=== PATIENT | female | born 1975 | race Caucasian/White ===

== ENCOUNTER → 2016-11-18 | Outpatient (CLI) | payer OTHER ==
--- NOTE | 2016-11-18 12:56 | PN ---
DATE OF SERVICE: 11/18/2016 [id number] lady who has been [facility] to discuss results of diagnostic sleep study for possible obstructive sleep apnea-hypopnea syndrome. I discussed results of diagnostic sleep study with patient in details. Mild to moderate snoring has been documented but no significant respiratory abnormalities following 4% oxygen desaturation criteria for hypopneas. Apnea-hypopnea index 1.0. Lowest oxygen level 87.4. Oxygen was below normal only for 0.1 minute. Patient continued to have symptoms of excessive daytime sleepiness. Today her [place] Sleepiness Scale is 19. MEDICATIONS: Cymbalta, vitamin D. During physical exam, patient in no distress. BP 164/108, HR 108, RR 16. Weight 298. BMI 51.1, temp 97.8. Oxygen saturation at room air 96%. OROPHARYNX: Short distance between soft palate and pharyngeal wall. ABDOMEN: Obese. NECK: Supple. No JVD, Thyroid is not palpable. LUNGS: Clear to percussion and to auscultation. Good air exchange. No wheezing or rhonchi. HEART: S1, S2 regular. No murmurs, gallops, or rubs. RUG CUTTER HELPER: Awake, alert, and oriented x3. Cranial nerves 2 to 7 intact. There is no fasciculation or atrophy noted. No focal deficits observed. IMPRESSION: 1. No significant respiratory abnormalities by results of polysomnogram following 4% oxygen desaturation criteria for hypopneas. 2. No REM sleep documented during the sleep study. Some of the patient has more abnormalities of respiration in REM sleep. 3. Patient continued to have symptoms of excessive daytime sleepiness, sometimes has sleepiness while driving the car. 4. Mild to moderate snoring has been documented during the sleep study. 5. Very minimal periodic limb movements have been documented during the sleep study without significant amount of microarousals. 6. 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 7. Obesity. 8. Depression. 9. Hypertension in the office, documented again. 10. History of sinusitis. 11. Status post tonsillectomy. PLAN: 1. Polysomnogram with multiple sleep latency test for objective evaluation of patient's symptoms of excessive daytime sleepiness. 2. Sleep hygiene with regular time in bed for at least 8 hours. 3. No driving if feeling any sleepiness. 4. Losing weight. Thank you very much for allowing me to participate in the management of your patient. Sincerely, Chance Aquino MD, PhD, FAASM Diplomat of [place] [employer], Sleep Medicine Board by [place] [employer] [place] [employer] Crawler Tractor Operator [facility] [place]
== END | disposition home or self-care (01) ==
LOC: SLEEP 11:04
PROVIDERS: ATTEND Internal Medicine
DX: G47.10 Hypersomnia, unspecified (principal); G47.63 Sleep related bruxism; E66.9 Obesity, unspecified; Z68.43 Body mass index [BMI] 50.0-59.9, adult; F32.9 Major depressive disorder, single episode, unspecified; I10 Essential (primary) hypertension; Z87.898 Personal history of other specified conditions; Z98.890 Other specified postprocedural states; Z79.899 Other long term (current) drug therapy

== ENCOUNTER 2017-08-27 18:05 | Emergency (ER) | payer OTHER ==
--- NOTE | 2017-08-27 19:03 | ED ---
Extremity Problem HPI - General Chief complaint: Extremity Problem,Nontraumatic Stated complaint: swelling and redness both ankles Time Seen by Provider: 08/27/17 18:21 Source: patient, RN notes reviewed, old records reviewed Mode of arrival: ambulatory Limitations: no limitations - History of Present Illness Initial comments: is a 42-year-old female presents emergency department today with 2 weeks of swelling in her low bilateral lower extremities. Patient reports she has no history of high blood pressure. She denies any diet high in salt intake. She reports that she has been having some pain with this swelling in her legs. She reports it feels like a stretching. She states that she's noticed some redness that is been a little bit worse on her right ankle compared to her left. She denies any history of blood clots. She denies any posterior calf or knee pain. She states that she has no shortness of breath, chest pain or heart palpitations. She went to urgent care earlier today and was sent here for further testing such as kidney function testing to see if she can be placed on diuretics. She is also concerned of possible blood clot. - Related Data Previous Rx's Medication Instructions Recorded Hydrochlorothiazide 12.5 mg PO DAILY #14 capsule 08/27/17 Allergies Allergy/AdvReac Type Severity Reaction Status Date / Time Sulfa (Sulfonamide Allergy Swelling Verified 08/27/17 18:35 Antibiotics) Review of Systems ROS Statement: Those systems with pertinent positive or pertinent negative responses have been documented in the HPI. ROS Other: All systems not noted in ROS Statement are negative. Past Medical History Past Medical History: No Reported History History of Any Multi-Drug Resistant Organisms: None Reported Past Surgical History: No Surgical Hx Reported Past Psychological History: No Psychological Hx Reported Smoking Status: Never smoker Past Alcohol Use History: None Reported Past Drug Use History: None Reported General Exam - General Exam Comments Initial Comments: This is a 42-year-old female. No distress. Limitations: no limitations General appearance: alert, in no apparent distress Head exam: Present: atraumatic, normocephalic, normal inspection Eye exam: Present: normal appearance, PERRL, EOMI. Absent: scleral icterus, conjunctival injection, periorbital swelling ENT exam: Present: normal exam, mucous membranes moist Neck exam: Present: normal inspection. Absent: tenderness, meningismus, lymphadenopathy Respiratory exam: Present: normal lung sounds bilaterally. Absent: respiratory distress, wheezes, rales, rhonchi, stridor Cardiovascular Exam: Present: regular rate, normal rhythm, normal heart sounds. Absent: systolic murmur, diastolic murmur, rubs, gallop, clicks GI/Abdominal exam: Present: soft, normal bowel sounds. Absent: distended, tenderness, guarding, rebound, rigid Extremities exam: Present: normal inspection, full ROM, normal capillary refill , pedal edema ( is bilateral 2+ pedal edema.). Absent: tenderness, joint swelling, calf tenderness Back exam: Present: normal inspection, full ROM Neurological exam: Present: alert, oriented X3, CN II-XII intact, normal gait Psychiatric exam: Present: normal affect, normal mood Skin exam: Present: warm, dry, intact, normal color. Absent: rash Course Vital Signs 08/27/17 18:17 Temperature 97.9 F Pulse Rate 93 Respiratory 18 Rate Blood Pressure 143/84 O2 Sat by Pulse 100 Oximetry Medical Decision Making - Medical Decision Making Is a 42-year-old female presenting today with bilateral feet and ankle swelling for approximately 2 weeks. She was sent here from [facility] for further testing. She has a chest pain or shortness of breath. She states that she's been on her feet somewhat more than regular when she was asked again. Patient ultrasound is negative for DVT. Patient's kidney function is normal. Patient appears asthma dependent edema. Discussed With the patient on a low-dose water pill, and elevating she her legs. Patient understands treatment plan will comply. Came return parameters were discussed. - Lab Data Result diagrams: 08/27/17 18:58 08/27/17 18:58 Lab Results 08/27/17 08/27/17 Range/Units 18:58 18:58 WBC 6.6 (3.8-10.6) k/uL RBC 5.02 (3.80-5.40) m/uL Hgb 14.8 (11.4-16.0) gm/dL Hct 44.2 (34.0-46.0) % MCV 88.0 (80.0-100.0) fL MCH 29.5 (25.0-35.0) pg MCHC 33.5 (31.0-37.0) g/dL RDW 14.7 (11.5-15.5) % Plt Count 408 (150-450) k/uL Neutrophils % 63 % Lymphocytes % 25 % Monocytes % 7 % Eosinophils % 3 % Basophils % 1 % Neutrophils # 4.1 (1.3-7.7) k/uL Lymphocytes # 1.6 (1.0-4.8) k/uL Monocytes # 0.5 (0-1.0) k/uL Eosinophils # 0.2 (0-0.7) k/uL Basophils # 0.1 (0-0.2) k/uL Sodium 137 (137-145) mmol/L Potassium 4.3 (3.5-5.1) mmol/L Chloride 102 (98-107) mmol/L Carbon Dioxide 28 (22-30) mmol/L Anion Gap 7 mmol/L BUN 9 (7-17) mg/dL Creatinine 0.85 (0.52-1.04) mg/dL Est GFR (MDRD) Af Amer >60 (>60 ml/min/1.73 sqM) Est GFR (MDRD) Non-Af >60 (>60 ml/min/1.73 sqM) Glucose 99 (74-99) mg/dL Calcium 10.0 (8.4-10.2) mg/dL - Radiology Data Radiology results: report reviewed Sound is negative for DVT. Disposition Clinical Impression: Dependent edema Disposition: HOME SELF-CARE Condition: Good Instructions: Leg Edema (ED) Additional Instructions: Patient advised to elevate your legs. Patient should increase water, decrease her salt intake. Patient should follow-up with primary care provider within the next 1-2 weeks. Return to the emergency department if any alarming signs or symptoms occur. Prescriptions: Hydrochlorothiazide 12.5 mg PO DAILY #14 capsule Referrals: Dakotah Lam MD [Primary Care Provider] - 1-2 days Time of Disposition: 20:23
[2017-08-27 19:22] LABS: Basophils # (A) 0.1 k/uL (0-0.2); Basophils % (A) 1 %; CH 30.2; CHCM 34.5; Eosinophils # (A) 0.2 k/uL (0-0.7); Eosinophils % (A) 3 %; HCT 44.2 % (34.0-46.0); HGB 14.8 gm/dL (11.4-16.0); Luc # (Auto) 0.15; Luc % (Auto) 2; Lymphocytes # (A) 1.6 k/uL (1.0-4.8); Lymphocytes % (A) 25 %; MCH 29.5 pg (25.0-35.0); MCHC 33.5 g/dL (31.0-37.0); Mean Platelet Volume 6.7; Monocytes # (A) 0.5 k/uL (0-1.0); Monocytes % (A) 7 %; Neutrophils # (A) 4.1 k/uL (1.3-7.7); Neutrophils % (A) 63 %; RBC 5.02 m/uL (3.80-5.40); RDW 14.7 % (11.5-15.5); WBC 6.6 k/uL (3.8-10.6); WBC (Perox) 6.42
[2017-08-27 19:29] LABS: Anion Gap 7 mmol/L; Blood Urea Nitrogen 9 mg/dL (7-17); Carbon Dioxide 28 mmol/L (22-30); Chloride 102 mmol/L (98-107); Glucose 99 mg/dL (74-99); Non-African American GFR(MDRD) >60 (>60 ml/min/1.73 sqM); Potassium 4.3 mmol/L (3.5-5.1); Sodium 137 mmol/L (137-145)
--- NOTE | 2017-08-27 20:06 | US ---
EXAMINATION TYPE: US venous doppler duplex LE DATE OF EXAM: 08/27/2017 7:34 PM COMPARISON: NONE CLINICAL HISTORY: Pain. bilateral leg swelling SIDE PERFORMED: bilateral TECHNIQUE: The lower extremity deep venous system is examined utilizing real time linear array sonog lennie with graded compression, doppler sonography and color-flow sonography. VESSELS IMAGED: External Iliac Vein (EIV) Common Femoral Vein Deep Femoral Vein Greater Saphenous Vein * Femoral Vein Popliteal Vein Small Saphenous Vein * Proximal Calf Veins (* superficial vessels) Some exam limitations due to large habitus. Right Leg: neg for RLE dvt Left Leg: neg for LLE dvt IMPRESSION: Grayscale, color doppler, spectral doppler imaging performed of the deep veins of the lo wer extremities. There is normal flow, compressibility, vascular waveforms.
[2017-08-27 20:43] VITALS: BP 145/75; PULSE 97; RESP 17; TEMP 97.7
== END 2017-08-27 20:43 | disposition home or self-care (01) ==
LOC: EC 18:05
DX: R60.9 Edema, unspecified (principal); Z88.2 Allergy status to sulfonamides
CPT/HCPCS: 36415; 80048; 85025; 93970; 99284

== ENCOUNTER → 2020-06-03 | Outpatient (CLI) | payer OTHER ==
--- NOTE | 2020-06-03 14:22 | MM ---
Reason for exam: screening (asymptomatic). Baseline mammogram. History: Took hormonal contraceptives for 3 years. Physical Findings: Nurse did not find any significant physical abnormalities on exam. MG 3D Screening Mammo W/Cad Bilateral CC, MLO, and XCCL view(s) were taken. There are scattered fibroglandular densities. Finding: There is a 5 mm equal density (isodense) mass in the left breast. There are lymph nodes bilaterally. These results were verbally communicated with the patient and result sheet given to the patient on 06/03/20. ASSESSMENT: Incomplete: need additional imaging evaluation, BI-RAD 0 RECOMMENDATION: Special view mammogram of the left breast.
--- NOTE | 2020-06-03 14:23 | MM ---
Reason for exam: additional evaluation requested from abnormal screening. History: Took hormonal contraceptives for 3 years. Physical Findings: Breast exam preformed at baseline screening. MG 3D Work Up W/Cad LT Spot compression CC, spot compression MLO, and ML view(s) were taken of the left breast. There are scattered fibroglandular densities. These results were verbally communicated with the patient and result sheet given to the patient on 06/03/20. ASSESSMENT: Probably benign, BI-RAD 3 RECOMMENDATION: Follow-up diagnostic mammogram of the left breast in 6 months.
== END | disposition home or self-care (01) ==
LOC: RADMAMWWP 12:56
PROVIDERS: ATTEND Internal Medicine
DX: Z12.31 Encounter for screening mammogram for malignant neoplasm of breast (principal); R92.8 Other abnormal and inconclusive findings on diagnostic imaging of breast
CPT/HCPCS: 77061; 77063; 77065; 77067

== ENCOUNTER 2023-05-10 06:29 | Emergency (ER) | payer OTHER ==
[2023-05-10 06:35] VITALS: RESP 18; TEMP 97.9
[2023-05-10] MEDS ORDERED: BACITRACIN OINT 1 EACH PACKET TOPICAL ONE (07:27)
--- NOTE | 2023-05-10 07:29 | ED ---
General Adult HPI - General Chief complaint: Wound/Laceration Stated complaint: Fall, Lac on back of shoulder Time Seen by Provider: 05/10/23 06:49 Source: patient, RN notes reviewed Mode of arrival: ambulatory Limitations: no limitations - History of Present Illness Initial comments: 47-year-old female presents emergency Department chief complaint of laceration to her right axilla region. Patient states that she's shower fell on to the faucet causing a laceration. She is unsure when her last tetanus was. Patient denies any head injury no loss conscious. She states there is a large laceration that extends into her right axilla. - Related Data Previous Rx's Medication Instructions Recorded hydroCHLOROthiazide 12.5 mg PO DAILY #14 capsule 08/27/17 Allergies Allergy/AdvReac Type Severity Reaction Status Date / Time Sulfa (Sulfonamide Allergy Swelling Verified 05/10/23 06:35 Antibiotics) Review of Systems ROS Statement: Those systems with pertinent positive or pertinent negative responses have been documented in the HPI. ROS Other: All systems not noted in ROS Statement are negative. Past Medical History Past Medical History: No Reported History History of Any Multi-Drug Resistant Organisms: None Reported Past Surgical History: No Surgical Hx Reported Past Psychological History: Depression Past Alcohol Use History: None Reported Past Drug Use History: None Reported General Exam Limitations: no limitations General appearance: alert, in no apparent distress Head exam: Present: atraumatic, normocephalic, normal inspection Neck exam: Present: full ROM Respiratory exam: Present: normal lung sounds bilaterally. Absent: respiratory distress, wheezes, rales, rhonchi, stridor Cardiovascular Exam: Present: regular rate, normal rhythm, normal heart sounds. Absent: systolic murmur, diastolic murmur, rubs, gallop, clicks Extremities exam: Present: other (Right posterior shoulder into the right axilla there is a 5 cm laceration) Course Vital Signs 05/10/23 06:32 Temperature 97.9 F Pulse Rate 102 H Respiratory 18 Rate Blood Pressure 164/101 O2 Sat by Pulse 96 Oximetry Procedures - Laceration Laceration #1 Consent Obtained: verbal consent Indication: laceration Site: upper extremity Size (cm): 5 Description: irregular Depth: simple, single layer Anesthetic Used: lidocaine 1%, without epi Anesthesia Technique: local infiltration Amount (mls): 8 Pre-repair: wound explored, irrigated extensively, deep structures intact Type of Sutures: nylon Size of Sutures: 4-0 Number of Sutures: 13 Technique: simple, interrupted Patient Tolerated Procedure: well, no complications Medical Decision Making - Medical Decision Making Was pt. sent in by a medical professional or institution (KERRY Delacruz, HEALTHCARE RECRUITER, urgent care, hospital, or residential...) When possible be specific @ -No Did you speak to anyone other than the patient for history (EMS, parent, family, police, friend...)? What history was obtained from this source @ -No Did you review nursing and triage notes (agree or disagree)? Why? @ -I reviewed and agree with nursing and triage notes Were old charts reviewed (outside hosp., previous admission, EMS record, old EKG, old radiological studies, urgent care reports/EKG's, residential records)? Report findings @ -No old charts were reviewed Differential Diagnosis (chest pain, altered mental status, abdominal pain women, abdominal pain men, vaginal bleeding, weakness, fever, dyspnea, syncope, headache, dizziness, GI bleed, back pain, seizure, CVA, palpatations, mental health, musculoskeletal)? @ -Laceration, skin avulsion EKG interpreted by me (3pts min.). @ -None X-rays interpreted by me (1pt min.). @ -None done CT interpreted by me (1pt min.). @ -None done U/S interpreted by me (1pt. min.). @ -None done What testing was considered but not performed or refused? (CT, X-rays, U/S, labs)? Why? @ -None What meds were considered but not given or refused? Why? @ -None Did you discuss the management of the patient with other professionals (professionals i.e. KERRY Delacruz, HEALTHCARE RECRUITER, lab, RT, psych nurse, social work administrator, school photographer, teacher, retail loss prevention officer, telehealth case manager)? Give summary @ -No Was smoking cessation discussed for >3mins.? @ -No Was critical care preformed (if so, how long)? @ -No Were there social determinants of health that impacted care today? How? (Homelessness, low income, unemployed, alcoholism, drug addiction, transportation, low edu. Level, literacy, decrease access to med. care, long-term, rehab)? @ -No Was there de-escalation of care discussed even if they declined (Discuss DNR or withdrawal of care, Hospice)? DNR status @ -No What co-morbidities impacted this encounter? (DM, HTN, Smoking, COPD, CAD, Cancer, CVA, ARF, Chemo, Hep., AIDS, mental health diagnosis, sleep apnea, morbid obesity)? @ -None Was patient admitted / discharged? Hospital course, mention meds given and route, prescriptions, significant lab abnormalities, going to OR and other pertinent info. @ -Discharged Patient presented for large laceration is repaired no palpitations. Patient discharged stable condition and return parameters were discussed. Undiagnosed new problem with uncertain prognosis? @ -No Drug Therapy requiring intensive monitoring for toxicity (Heparin, Nitro, Insulin, Cardizem)? @ -No Were any procedures done? @ -Laceration repair Diagnosis/symptom? @ -Laceration Acute, or Chronic, or Acute on Chronic? @ -Acute Uncomplicated (without systemic symptoms) or Complicated (systemic symptoms)? @ -Uncomplicated Side effects of treatment? @ -No Exacerbation, Progression, or Severe Exacerbation? @ -No Poses a threat to life or bodily function? How? (Chest pain, [place], [place], pneumonia, PE, COPD, DKA, ARF, appy, cholecystitis, CVA, Diverticulitis, Homicidal, Suicidal, threat to staff... and all critical care pts) @ -No Disposition Clinical Impression: Laceration of shoulder Disposition: HOME SELF-CARE Condition: Stable Instructions (If sedation given, give patient instructions): Care For Your Stitches (ED), Laceration (ED) Additional Instructions: have sutures removed in 14 days. Please return to the Emergency Department if symptoms worsen or any other concerns. Is patient prescribed a controlled substance at d/c from ED?: No Referrals: David Doyle MD [Primary Care Provider] - 1-2 days Time of Disposition: 07:29
[2023-05-10] MEDS ORDERED: DIPH,PERTUS(ACELL)TETVAC-LF 0.5 ML VIAL IM ONE (07:37)
[2023-05-10 07:49] VITALS: BP 132/78; PULSE 90
== END 2023-05-10 07:49 | disposition home or self-care (01) ==
LOC: EC 06:29
DX: S41.011A Laceration without foreign body of right shoulder, initial encounter (principal); Z23 Encounter for immunization; Z88.2 Allergy status to sulfonamides; W19.XXXA Unspecified fall, initial encounter; W22.8XXA Striking against or struck by other objects, initial encounter
CPT/HCPCS: 12002; 90471; 90715; 99282

== ENCOUNTER 2024-06-20 05:18 | Emergency (ER) | payer OTHER ==
--- NOTE | 2024-06-20 05:44 | ED ---
General Adult HPI - General Source: patient, RN notes reviewed, old records reviewed Mode of arrival: ambulatory Limitations: no limitations <James Alvarado - Last Filed: 06/20/24 05:42> <Houston Puga - Last Filed: 06/20/24 15:52> - General Chief complaint: Syncope Stated complaint: Syncope Time Seen by Provider: 06/20/24 05:26 - History of Present Illness Initial comments: 48-year-old female presenting after brief syncopal episode. Patient states she got up to go to the bathroom and passed out. No injury. Patient states she has had ongoing vaginal bleeding for the past at least 2 weeks she describes this as quite heavy. She has felt somewhat lightheaded. No chest pain or difficulty breathing. No fever. No abdominal pain. (James Alvarado) - Related Data Previous Rx's Medication Instructions Recorded hydroCHLOROthiazide 12.5 mg PO DAILY #14 capsule 08/27/17 Allergies Allergy/AdvReac Type Severity Reaction Status Date / Time Sulfa (Sulfonamide Allergy Swelling Verified 06/20/24 05:24 Antibiotics) Review of Systems ROS Other: All systems not noted in ROS Statement are negative. <James Alvarado - Last Filed: 06/20/24 05:42> ROS Other: All systems not noted in ROS Statement are negative. <Houston Puga - Last Filed: 06/20/24 15:52> ROS Statement: Those systems with pertinent positive or pertinent negative responses have been documented in the HPI. Past Medical History Past Medical History: No Reported History History of Any Multi-Drug Resistant Organisms: None Reported Past Surgical History: No Surgical Hx Reported Past Psychological History: Depression Smoking Status: Never smoker Past Alcohol Use History: None Reported Past Drug Use History: None Reported <James Alvarado - Last Filed: 06/20/24 05:42> General Exam Limitations: no limitations General appearance: alert, in no apparent distress Head exam: Present: atraumatic, normocephalic Eye exam: Present: normal appearance, PERRL ENT exam: Present: normal exam Neck exam: Present: normal inspection. Absent: tenderness, meningismus Respiratory exam: Present: normal lung sounds bilaterally. Absent: respiratory distress, wheezes Cardiovascular Exam: Present: regular rate, normal rhythm GI/Abdominal exam: Present: soft. Absent: distended, tenderness, guarding Extremities exam: Present: normal inspection Neurological exam: Present: alert, oriented X3 Psychiatric exam: Present: normal affect, normal mood Skin exam: Present: warm, dry, intact. Absent: cyanosis, diaphoretic <James Alvarado - Last Filed: 06/20/24 05:42> Course Vital Signs 06/20/24 06/20/24 06/20/24 05:22 06:14 08:25 Temperature 97.5 F L 97.8 F Pulse Rate 74 73 72 Respiratory 18 15 16 Rate Blood Pressure 155/97 105/62 104/53 O2 Sat by Pulse 100 99 98 Oximetry Medical Decision Making <James Alvarado - Last Filed: 06/20/24 05:42> - Lab Data Result diagrams: 06/20/24 05:37 06/20/24 05:37 <Houston Puga - Last Filed: 06/20/24 15:52> - Medical Decision Making Was pt. sent in by a medical professional or institution (Dr. PA, DIRECTOR OF COMPENSATION, urgent care, hospital, or care home...) When possible be specific @ -No Did you speak to anyone other than the patient for history (EMS, parent, family, police, friend...)? What history was obtained from this source @ -No Did you review nursing and triage notes (agree or disagree)? Why? @ -I reviewed and agree with nursing and triage notes Were old charts reviewed (outside hosp., previous admission, EMS record, old EKG, old radiological studies, urgent care reports/EKG's, care home records)? Report findings @ -No old charts were reviewed Differential Syncope: Valvular disease, hypertrophic cardiomyopathy, pulmonary embolism, tamponade, tachycardia, bradycardia, MO, hypovolemia, hemorrhage, dissection, anemia, intracranial hemorrhage, seizure, hypoglycemia, carbon monoxide poisoning, this is not meant to be an all-inclusive list. EKG interpreted by me (3pts min.). @ -Sinus rhythm rate of 74, NH interval 159, QRS duration 89, QTc [address] segment elevation,tremor artifact. X-rays interpreted by me (1pt min.). @ -None done CT interpreted by me (1pt min.). @ -None done U/S interpreted by me (1pt. min.). @Pelvic ultrasound pending What testing was considered but not performed or refused? (CT, X-rays, U/S, labs)? Why? @ -None What meds were considered but not given or refused? Why? @ -None Did you discuss the management of the patient with other professionals (professionals i.e. , PA, DIRECTOR OF COMPENSATION, lab, RT, psych nurse, social worker school, income tax manager, teacher, veterans service officer, director of casework services)? Give summary @ -No Was smoking cessation discussed for >3mins.? @ -No Was critical care preformed (if so, how long)? @ -No Were there social determinants of health that impacted care today? How? (Homelessness, low income, unemployed, alcoholism, drug addiction, transportation, low edu. Level, literacy, decrease access to med. care, custodial, rehab)? @ -No Was there de-escalation of care discussed even if they declined (Discuss DNR or withdrawal of care, Hospice)? DNR status @ -No What co-morbidities impacted this encounter? (DM, HTN, Smoking, COPD, CAD, Cancer, CVA, ARF, Chemo, Hep., AIDS, mental health diagnosis, sleep apnea, morbid obesity)? @ -None Was patient admitted / discharged? Hospital course, mention meds given and route , prescriptions, significant lab abnormalities, going to OR and other pertinent info. @ -Care signed out at shift change awaiting laboratory testing, reevaluation, and pelvic ultrasound. (James Alvarado) Patient signed out to me pending results of ultrasound. Briefly, patient had a syncope versus near syncope episode at home this morning. Has been having heavy vaginal bleeding for multiple weeks. Is not on blood thinners. No significant past medical history. Workup so far unremarkable. There is some blood in her urine which is likely from the vaginal bleeding. Ultrasound is interpreted by myself reveals uterine fibroids without any obvious other acute process at this time. I discussed results with patient. She is feeling improved. She be discharged home at this time with instructed follow-up with her [employer]. She does have an appointment in a few weeks. Strict return precautions discussed. I instructed the patient to follow up with their PCP in the next 1-3 days. I explained that the patient should return to the emergency department if they e xperience any worsening symptoms. Strict return precautions were discussed with the patient. The patient expressed understanding of these instructions. I answered all questions that the patient had. The patient was discharged home in good condition with their prescriptions and follow up information. Diagnosis/symptom? @ -Dysfunctional uterine bleeding, uterine fibroids, syncope Acute, or Chronic, or Acute on Chronic? @ -Acute Uncomplicated (without systemic symptoms) or Complicated (systemic symptoms)? @ -Complicated Side effects of treatment? @ -None Exacerbation, Progression, or Severe Exacerbation] @ -No Poses a threat to life or bodily function? @ -Unlikely at this time (Houston Puga) - Lab Data Lab Results 06/20/24 06/20/24 06/20/24 Range/Units 05:37 05:37 05:37 WBC 7.4 (3.8-10.6) k/uL RBC 4.30 (3.80-5.40) m/uL Hgb 13.2 (11.4-16.0) gm/dL Hct 40.2 (34.0-46.0) % MCV 93.5 (80.0-100.0) fL MCH 30.6 (25.0-35.0) pg MCHC 32.7 (31.0-37.0) g/dL RDW 12.9 (11.5-15.5) % Plt Count 448 (150-450) k/uL MPV 7.0 Neutrophils % 55 % Lymphocytes % 34 % Monocytes % 7 % Eosinophils % 2 % Basophils % 1 % Neutrophils # 4.0 (1.3-7.7) k/uL Lymphocytes # 2.5 (1.0-4.8) k/uL Monocytes # 0.5 (0-1.0) k/uL Eosinophils # 0.1 (0-0.7) k/uL Basophils # 0.1 (0-0.2) k/uL PT 9.9 L (10.0-12.5) sec INR 0.9 (<1.2) APTT 27.5 (22.0-30.0) sec Sodium 139 (137-145) mmol/L Potassium 3.8 (3.5-5.1) mmol/L Chloride 104 (98-107) mmol/L Carbon Dioxide 27 (22-30) mmol/L Anion Gap 8 mmol/L BUN 12 (7-17) mg/dL Creatinine 0.88 (0.52-1.04) mg/dL Est GFR (CKD-EPI)AfAm 89 (>60 ml/min/1.73 sqM) Est GFR (CKD-EPI)NonAf 77 (>60 ml/min/1.73 sqM) Glucose 95 (74-99) mg/dL Calcium 9.2 (8.4-10.2) mg/dL Magnesium 1.8 (1.6-2.3) mg/dL Total Bilirubin 0.5 (0.2-1.3) mg/dL AST 33 (14-36) U/L ALT 24 (4-34) U/L Alkaline Phosphatase 65 (38-126) U/L Total Protein 6.7 (6.3-8.2) g/dL Albumin 4.0 (3.5-5.0) g/dL Urine Color Urine Appearance (Clear) Urine pH (5.0-8.0) Ur Specific [place] (1.001-1.035) Urine Protein (Negative) Urine Glucose (UA) (Negative) Urine Ketones (Negative) Urine Blood (Negative) Urine Nitrite (Negative) Urine Bilirubin (Negative) Urine Urobilinogen (<2.0) mg/dL Ur Leukocyte Esterase (Negative) Urine RBC (0-5) /hpf Urine WBC (0-5) /hpf Ur Squamous Epith Cells (0-4) /hpf Hyaline Casts (0-2) /lpf Urine Mucus (None) /hpf Blood Type Blood Type Recheck Bld Type Recheck Status Antibody Screen Spec Expiration Date 06/20/24 06/20/24 Range/Units 05:41 05:50 WBC (3.8-10.6) k/uL RBC (3.80-5.40) m/uL Hgb (11.4-16.0) gm/dL Hct (34.0-46.0) % MCV (80.0-100.0) fL MCH (25.0-35.0) pg MCHC (31.0-37.0) g/dL RDW (11.5-15.5) % Plt Count (150-450) k/uL MPV Neutrophils % % Lymphocytes % % Monocytes % % Eosinophils % % Basophils % % Neutrophils # (1.3-7.7) k/uL Lymphocytes # (1.0-4.8) k/uL Monocytes # (0-1.0) k/uL Eosinophils # (0-0.7) k/uL Basophils # (0-0.2) k/uL PT (10.0-12.5) sec INR (<1.2) APTT (22.0-30.0) sec Sodium (137-145) mmol/L Potassium (3.5-5.1) mmol/L Chloride (98-107) mmol/L Carbon Dioxide (22-30) mmol/L Anion Gap mmol/L BUN (7-17) mg/dL Creatinine (0.52-1.04) mg/dL Est GFR (CKD-EPI)AfAm (>60 ml/min/1.73 sqM) Est GFR (CKD-EPI)NonAf (>60 ml/min/1.73 sqM) Glucose (74-99) mg/dL Calcium (8.4-10.2) mg/dL Magnesium (1.6-2.3) mg/dL Total Bilirubin (0.2-1.3) mg/dL AST (14-36) U/L ALT (4-34) U/L Alkaline Phosphatase (38-126) U/L Total Protein (6.3-8.2) g/dL Albumin (3.5-5.0) g/dL Urine Color Light Red Urine Appearance Clear (Clear) Urine pH 5.5 (5.0-8.0) Ur Specific [place] 1.025 (1.001-1.035) Urine Protein 1+ H (Negative) Urine Glucose (UA) Negative (Negative) Urine Ketones Negative (Negative) Urine Blood Large H (Negative) Urine Nitrite Negative (Negative) Urine Bilirubin Negative (Negative) Urine Urobilinogen <2.0 (<2.0) mg/dL Ur Leukocyte Esterase Trace H (Negative) Urine RBC >182 H (0-5) /hpf Urine WBC 135 H (0-5) /hpf Ur Squamous Epith Cells 4 (0-4) /hpf Hyaline Casts 8 H (0-2) /lpf Urine Mucus Few H (None) /hpf Blood Type O Positive Blood Type Recheck O Pos Bld Type Recheck Status No Antibody Screen NEGATIVE Spec Expiration Date 06/23/2024 - 2340 Disposition <James Alvarado - Last Filed: 06/20/24 05:42> Is patient prescribed a controlled substance at d/c from ED?: No Time of Disposition: 08:10 <Houston Puga - Last Filed: 06/20/24 15:52> Clinical Impression: Dysfunctional uterine bleeding, Syncope, Uterine fibroid Disposition: HOME SELF-CARE Condition: Good Instructions (If sedation given, give patient instructions): Abnormal (Dysfunctional) Uterine Bleeding (ED) Referrals: David Doyle MD [Primary Care Provider] - 1-2 days
[2024-06-20 05:49] LABS: Basophils # (A) 0.1 k/uL (0-0.2); Basophils % (A) 1 %; Eosinophils # (A) 0.1 k/uL (0-0.7); Eosinophils % (A) 2 %; HCT 40.2 % (34.0-46.0); HGB 13.2 gm/dL (11.4-16.0); Lymphocytes # (A) 2.5 k/uL (1.0-4.8); Lymphocytes % (A) 34 %; MCH 30.6 pg (25.0-35.0); MCHC 32.7 g/dL (31.0-37.0); MCV 93.5 fL (80.0-100.0); Monocytes # (A) 0.5 k/uL (0-1.0); Monocytes % (A) 7 %; Neutrophils % (A) 55 %; Platelet Count 448 k/uL (150-450); RDW 12.9 % (11.5-15.5); WBC 7.4 k/uL (3.8-10.6)
[2024-06-20] MEDS: SODIUM CHLORIDE 0.9% 1,000 ML IV STA (06:00)
[2024-06-20 06:05] LABS: INR 0.9 (<1.2); Partial Thromboplastin Time 27.5 sec (22.0-30.0); Prothrombin Time 9.9 sec (10.0-12.5)
[2024-06-20 06:06] LABS: ALT 24 U/L (4-34); AST 33 U/L (14-36); African American GFR (CKD) 89 (>60 ml/min/1.73 sqM); Alkaline Phosphatase 65 U/L (38-126); Anion Gap 8 mmol/L; Blood Urea Nitrogen 12 mg/dL (7-17); Calcium 9.2 mg/dL (8.4-10.2); Carbon Dioxide 27 mmol/L (22-30); Chloride 104 mmol/L (98-107); Glucose 95 mg/dL (74-99); Magnesium 1.8 mg/dL (1.6-2.3); Non-African American GFR(CKD) 77 (>60 ml/min/1.73 sqM); Potassium 3.8 mmol/L (3.5-5.1); Sodium 139 mmol/L (137-145); Total Bilirubin 0.5 mg/dL (0.2-1.3); Total Protein 6.7 g/dL (6.3-8.2)
[2024-06-20 06:19] LABS: Appearance,Urine Clear (Clear); Bilirubin,Urine Negative (Negative); Blood,Urine Large (Negative); Color,Urine Light Red; Glucose,Urine (UA) Negative (Negative); Hyaline Casts,Urine 8 /lpf (0-2); Ketones,Urine Negative (Negative); Leukocyte Esterase,Urine Trace (Negative); Mucus,Urine Few /hpf; Nitrite,Urine Negative (Negative); PH, Urine 5.5 (5.0-8.0); Protein,Urine 1+ (Negative); RBC,Urine >182 /hpf (0-5); Specific Gravity,Urine 1.025 (1.001-1.035); Squamous Epithelial Cell,Urine 4 /hpf (0-4); Urobilinogen,Urine <2.0 mg/dL (<2.0); WBC,Urine 135 /hpf (0-5)
--- NOTE | 2024-06-20 07:50 | US ---
EXAMINATION TYPE: US transvaginal DATE OF EXAM: 06/20/2024 COMPARISON: NONE CLINICAL INDICATION: Female, 48 years old with history of heavy vaginal bleeding; Pt states heavy vag inal bleeding TECHNIQUE: Transvaginal (TV). Transvaginal grayscale, color Doppler sonographic images of the pelvi s were acquired. FINDINGS: Date of LMP: 06/06/2024 EXAM MEASUREMENTS: Uterus: 12.0 x 6.4 x 8.6 cm Endometrial Stripe: 1.5 cm 1. Uterus: Anteverted Bulky, heterogeneous with probable, multiple fibroids 1)- posterior body= 4. 2 x 4.2 x 3.9 cm 2)- Anterior body, pedunculated= 2.9 x 3.3 x 2.3 cm 2. Endometrium: Thickened for pt's symptoms 3. Right Ovary: Obscured by overlying bowel gas and enlarged uterus 4. Left Ovary: Obscured by overlying bowel gas and enlarged uterus 5. Bilateral Adnexa: wnl 6. Posterior cul-de-sac: wnl IMPRESSION: 1. Fibroid uterus without evidence of acute process. 2. The ovaries are not visualized due to bowel gas. [facility], , 06/20/2024 7:48 AM
[2024-06-20 09:03] VITALS: BP 104/53; PULSE 72; RESP 16; TEMP 97.8
== END 2024-06-20 08:30 | disposition home or self-care (01) ==
LOC: EC 05:18
CPT/HCPCS: 36415; 76830; 80053; 81001; 83735; 85025; 85610; 85730; 86850; 86900; 86901; 90471; 93005; 96360; 99284

== ENCOUNTER → 2024-09-20 | Outpatient (CLI) | payer OTHER ==
--- NOTE | 2024-09-21 08:31 | MM ---
Reason for Exam: Screening (asymptomatic). Last mammogram was performed 4 year(s) and 4 month(s) ago. Patient History: Menarche at age 11. First Full-Term at age 21. Perimenopausal. Patient used Hormonal Contraceptives for 3 years. Risk Values: Jaylene 5 year model risk: 0.9%. NCI Lifetime model risk: 7.9%. Prior Study Comparison: 06/03/2020 Bilateral Screening Mammogram, [facility]. 06/03/2020 Left Diagnostic Mammogram, [facility]. Tissue Density: There are scattered areas of fibroglandular density. Findings: Analyzed By CAD. There is no suspicious group of microcalcifications or new suspicious mass in either breast. Overall Assessment: Negative, BI-RAD 1 Management: Screening Mammogram of both breasts in 1 year. . Patient should continue monthly self-breast exams. A clinical breast exam by your physician is recommended on an annual basis. This exam should not preclude additional follow-up of suspicious palpable abnormalities. Note on Jaylene scores and lifetime risk: 1. A Jaylene score greater than 3% is considered moderate risk. If this is the case, consider specialist referral to assess eligibility for a risk reducing agent. 2. If overall lifetime risk for the development of breast cancer is 20% or higher, the patient may qualify for future screening with alternating mammogram and breast MRI. [facility], , 09/21/2024 7:56 AM. Electronically signed and approved by: Rubén Mclaughlin M.D.
== END | disposition home or self-care (01) ==
LOC: RADMAMWWP 16:29
PROVIDERS: ATTEND Obstetrics & Gynecology
DX: Z12.31 Encounter for screening mammogram for malignant neoplasm of breast (principal); R92.323 Mammographic fibroglandular density, bilateral breasts
CPT/HCPCS: 77063; 77067